=== PATIENT | male | born 1965 | race Caucasian/White ===

== ENCOUNTER 2018-12-29 16:19 | Emergency (ER) | payer BC ==
--- NOTE | 2018-12-29 17:28 | ED ---
General Adult HPI - General Chief complaint: Extremity Problem,Nontraumatic Stated complaint: LEFT KNEE INFECTION Time Seen by Provider: 12/29/18 16:58 Source: patient Mode of arrival: ambulatory Limitations: no limitations - History of Present Illness Initial comments: Dictation was produced using [employer] dictation software. please excuse any grammatical, word or spelling errors. Chief Complaint: 53-year-old male presents with left knee pain. History of Present Illness: Is a 53-year-old male who presents with left knee pain. Patient states that his concern that his left knee is infected. Approximately one week ago he hit his knee with a pipe. Initially after the traumatic event symptoms were mild. Over the progressive days his knee pain and swelling got worse. Patient is concerned that he has any infection again. Several years ago patient had a right knee infection that was treated by Dr. Hayes. He was admitted[facility] for 4 days and given antibiotics. He called Dr. Hayes today and was instructed To the emergency department. The ROS documented in this emergency department record has been reviewed and confirmed by me. Those systems with pertinent positive or negative responses have been documented in the HPI. All other systems are other negative and/or noncontributory. PHYSICAL EXAM: General Impression: Alert and oriented x3, not in acute distress HEENT: Normocephalic atraumatic, extra-ocular movements intact, pupils equal and reactive to light bilaterally, mucous membranes moist. Cardiovascular: Heart regular rate and rhythm, S1&S2 audible, no murmurs, rubs or gallops Chest: Lungs clear to auscultation bilaterally, no rhonchi, no wheeze, no rales Abdomen: Bowel sounds present, abdomen soft, non-tender, non-distended, no organomegaly Musculoskeletal: Pulses present and equal in all extremities, no peripheral edema Left knee: Effusion noted, passive range of motion of the knee is able to be performed with minimal pain Motor: no focal deficits noted Neurological: CN II-XII grossly intact, no focal motor or sensory deficits noted Skin: Intact with no visualized rashes Psych: Normal affect and mood ED course: 53-year-old male with left knee pain. Signs upon arrival are within acceptable limits.Laboratory evaluation obtained. Leukocytosis of 12.4 with a secondary to stress. Coag panel is unremarkable. Metabolic panel shows glucose 130. ESR and CRP are both not elevated. Joint aspiration was performed with difficulty given that there was bloody fluid in the knee space. There was enough fluid only to send a culture. Clinical presentation consistent with hemarthrosis of unknown cause. There were findings of foreign bodies to the left knee just overlying the fibular head. Patient does not have any puncture wounds to the left knee. 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 Repeat vitals are unremarkable. Discussed patient case Dr. Hayes who agrees that his symptoms are not likely secondary to infectious arthritis. There is concern that patient might have soft tissue injury. Patient given prescription for crutches. Skin remarkable. Discharge and prescription for pain medications. Patient is agreeable to discharge. Patient given return precautions. He is told to come back to the emergency Department with infectious symptoms, worsening pain or redness to the left knee. Patient told to follow-up with Dr. Hayes in the office. - Related Data Previous Rx's Medication Instructions Recorded HYDROcodone/APAP 5-325MG [[place] 1 tab PO Q6HR PRN 3 Days #12 tab 12/29/18 5-325] Allergies Allergy/AdvReac Type Severity Reaction Status Date / Time No Known Allergies Allergy Verified 12/29/18 17:25 Review of Systems ROS Statement: Those systems with pertinent positive or pertinent negative responses have been documented in the HPI. ROS Other: All systems not noted in ROS Statement are negative. Past Medical History Past Medical History: No Reported History History of Any Multi-Drug Resistant Organisms: None Reported Past Surgical History: Orthopedic Surgery Additional Past Surgical History / Comment(s): jaw surgery Past Anesthesia/Blood Transfusion Reactions: No Reported Reaction Past Psychological History: No Psychological Hx Reported Smoking Status: Never smoker Past Alcohol Use History: None Reported Past Drug Use History: None Reported - Past Family History Mother Family Medical History: No Reported History Father Family Medical History: No Reported History General Exam Limitations: no limitations Course Vital Signs 12/29/18 12/29/18 16:27 19:18 Temperature 97.6 F 99.3 F Pulse Rate 93 96 Respiratory 20 16 Rate Blood Pressure 135/92 143/85 O2 Sat by Pulse 98 98 Oximetry Medical Decision Making - Lab Data Result diagrams: 12/29/18 17:46 12/29/18 17:46 Lab Results 11/08/19 11/08/19 11/08/19 Range/Units 17:46 17:46 17:46 WBC 12.4 H (3.8-10.6) k/uL RBC 4.96 (4.30-5.90) m/uL Hgb 15.0 (13.0-17.5) gm/dL Hct 44.2 (39.0-53.0) % MCV 89.1 (80.0-100.0) fL MCH 30.2 (25.0-35.0) pg MCHC 33.9 (31.0-37.0) g/dL RDW 12.7 (11.5-15.5) % Plt Count 311 (150-450) k/uL Neutrophils % 82 % Lymphocytes % 11 % Monocytes % 4 % Eosinophils % 1 % Basophils % 1 % Neutrophils # 10.1 H (1.3-7.7) k/uL Lymphocytes # 1.3 (1.0-4.8) k/uL Monocytes # 0.6 (0-1.0) k/uL Eosinophils # 0.1 (0-0.7) k/uL Basophils # 0.1 (0-0.2) k/uL ESR 14 (0-15) mm/hr PT 10.3 (9.0-12.0) sec INR 1.0 (<1.2) APTT 24.8 (22.0-30.0) sec Sodium 141 (137-145) mmol/L Potassium 4.2 (3.5-5.1) mmol/L Chloride 104 (98-107) mmol/L Carbon Dioxide 27 (22-30) mmol/L Anion Gap 10 mmol/L BUN 18 (9-20) mg/dL Creatinine 1.04 (0.66-1.25) mg/dL Est GFR (CKD-EPI)AfAm >90 (>60 ml/min/1.73 sqM) Est GFR (CKD-EPI)NonAf 81 (>60 ml/min/1.73 sqM) Glucose 130 H (74-99) mg/dL Calcium 9.5 (8.4-10.2) mg/dL C-Reactive Protein 11.2 H (<10.0) mg/L Disposition Clinical Impression: Left knee pain Disposition: HOME SELF-CARE Condition: Good Instructions (If sedation given, give patient instructions): Knee Pain (ED), Swollen Knee Joint (ED) Prescriptions: HYDROcodone/APAP 5-325MG [[place] 5-325] 1 tab PO Q6HR PRN 3 Days #12 tab PRN Reason: Severe Pain Is patient prescribed a controlled substance at d/c from ED?: Yes If prescribed controlled substance>3 days was MAPS reviewed?: Prescribed <3 Days Referrals: Joe Vyas MD [STAFF PHYSICIAN] - 1-2 days Time of Disposition: 19:53
[2018-12-29 17:56] LABS: Basophils # (A) 0.1 k/uL (0-0.2); Basophils % (A) 1 %; Eosinophils # (A) 0.1 k/uL (0-0.7); Eosinophils % (A) 1 %; HCT 44.2 % (39.0-53.0); Lymphocytes # (A) 1.3 k/uL (1.0-4.8); Lymphocytes % (A) 11 %; MCH 30.2 pg (25.0-35.0); MCHC 33.9 g/dL (31.0-37.0); MCV 89.1 fL (80.0-100.0); Mean Platelet Volume 6.6; Monocytes # (A) 0.6 k/uL (0-1.0); Monocytes % (A) 4 %; Neutrophils # (A) 10.1 k/uL (1.3-7.7); Neutrophils % (A) 82 %; Platelet Count 311 k/uL (150-450); RBC 4.96 m/uL (4.30-5.90); RDW 12.7 % (11.5-15.5); WBC 12.4 k/uL (3.8-10.6)
[2018-12-29 18:05] LABS: African American GFR (CKD) >90 (>60 ml/min/1.73 sqM); Anion Gap 10 mmol/L; Blood Urea Nitrogen 18 mg/dL (9-20); Calcium 9.5 mg/dL (8.4-10.2); Carbon Dioxide 27 mmol/L (22-30); Chloride 104 mmol/L (98-107); Glucose 130 mg/dL (74-99); Potassium 4.2 mmol/L (3.5-5.1); Sodium 141 mmol/L (137-145)
[2018-12-29 18:15] LABS: Partial Thromboplastin Time 24.8 sec (22.0-30.0); Prothrombin Time 10.3 sec (9.0-12.0)
[2018-12-29 18:24] LABS: C Reactive Protein 11.2 mg/L (<10.0)
--- NOTE | 2018-12-29 18:58 | XR ---
EXAMINATION TYPE: XR knee complete LT DATE OF EXAM: 12/29/2018 CLINICAL HISTORY: Left knee pain TECHNIQUE: Three views of the left knee are obtained. COMPARISON: None. FINDINGS: There is no acute fracture/dislocation evident in left knee. The tri-compartment joint sp aces appear within normal limits. The overlying soft tissue appears unremarkable. Thickening of the patellar tendon and hamstring tendon is noted with peripatellar soft tissue swelling. Lateral linear subcutaneous fragments (2 in number) are seen within the soft tissues overlying the fibular head. IMPRESSION: 1. Linear fragmented radiopaque foreign body is seen in the subcutaneous tissues overlying the proxim al fibular head, lateral to the fibular head on the frontal view. 2 fragments are seen measuring a to dominik distance of 1 cm. 2. No acute fracture or dislocation in the left knee. 3. Thickening of the patellar tendon and quadriceps tendon with peripatellar soft tissue swelling. Te ndinosis could be considered.
[2018-12-29 19:06] LABS: Erythrocyte Sedimentation Rate 14 mm/hr (0-15)
[2018-12-29 19:19] VITALS: BP 143/85; PULSE 96; RESP 16; TEMP 99.3
[2018-12-29] MEDS ORDERED: HYDROcodone/APAP 5-325MG 1 EACH TAB PO STA (19:48)
== END 2018-12-29 20:06 | disposition home or self-care (01) ==
LOC: EC 16:19
DX: M25.562 Pain in left knee (principal)
CPT/HCPCS: 20610; 36415; 80048; 85025; 85610; 85652; 85730; 86140; 87070; 87075; 87205; 99283